=== PATIENT | male | born 1960 | race Two or more races ===

== ENCOUNTER 2022-01-04 10:29 | Outpatient (CLI) | payer OTHER ==
[~2022-01-04 10:29] MED LIST: HYDROCHLOROTHIA25 MG; VASOTEC20 M1
== END 2022-01-04 10:44 | disposition home or self-care (01) ==
LOC: MRI 10:29
PROVIDERS: ATTEND General Practice
DX: M25.462 Effusion, left knee (principal)
CPT/HCPCS: 73721